=== PATIENT | female | born 1995 | race American Indian/Alaskan Native ===

== ENCOUNTER 2021-08-18 20:19 | Emergency (ER) | payer OTHER ==
[2021-08-18 20:46] VITALS: BP 152/82
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
== END 2021-08-18 21:19 | disposition home or self-care (01) ==
LOC: ED 20:19
DX: M54.6 Pain in thoracic spine (principal); M79.18 Myalgia, other site; F17.200 Nicotine dependence, unspecified, uncomplicated; Z79.899 Other long term (current) drug therapy; V87.7XXA Person injured in collision between other specified motor vehicles (traffic), initial encounter; Y93.89 Activity, other specified; Y92.488 Other paved roadways as the place of occurrence of the external cause; Y99.8 Other external cause status
CPT/HCPCS: 99282